=== PATIENT | male | born 1960 | race Hispanic/Latino ===

== ENCOUNTER → 2025-01-22 | Outpatient (REF) | payer BC, OTHER ==
[~2025-01-22] MED LIST: AMLODIPINE BESYL5 MG PO; BENICAR20 MG PO; METFORMIN HCL500 MG PO; PRAVASTATIN SOD20 MG PO
== END ==
LOC: RAD 10:00 → EDSTATUS 01-26 13:00
PROVIDERS: ATTEND Internal Medicine Gastroenterology
DX: Z01.818 Encounter for other preprocedural examination (principal); Z12.11 Encounter for screening for malignant neoplasm of colon; K21.9 Gastro-esophageal reflux disease without esophagitis
CPT/HCPCS: 93005